=== PATIENT | male | born 1970 | race African-American/Black ===

== ENCOUNTER 2023-05-11 01:54 | Emergency (ER) | payer OTHER, SELFPAY ==
[2023-05-11 02:07] VITALS: BP 181/88; PULSE 87; RESP 18; TEMP 36.3; O2SAT 98; BMI 44.7
--- NOTE | 2023-05-11 02:16 | ED.WOUNDLAC ---
HPI - Wound/Laceration General Chief Complaint: Wound/Laceration Stated Complaint: cut on head may need stiches Time Seen by Provider: 05/11/23 02:02 Source: patient Mode of arrival: Ambulatory History of Present Illness HPI narrative: 52-year-old male presents for head laceration. He was working in his garage when he felt something strike his head. He later noticed blood dripping down his face and realized that he cut himself on something. He could not stop the bleeding so decided to present for evaluation. Reports tetanus shot updated several weeks ago as part of routine vaccinations. Related Data Allergies Allergy/AdvReac Type Severity Reaction Status Date / Time No Known Drug Allergies Allergy Verified 05/11/23 02:25 Review of Systems Review of Systems Narrative: Otherwise negative Patient History Social History Smoking Status: Never smoker Smoking Status: Never smoker alcohol intake frequency: 0-2 drinks per day Substance Use Type: does not use Exam Initial Vital Signs Initial Vital Signs: Vital Signs Temperature 97.4 F L 05/11/23 02:07 Pulse Rate 87 05/11/23 02:07 Respiratory Rate 18 05/11/23 02:07 Blood Pressure 181/88 H 05/11/23 02:07 Pulse Oximetry 98 05/11/23 02:07 Oxygen Delivery Method Room Air 05/11/23 02:07 Const: Awake, alert, no acute distress, nontoxic appearing Skin: Warm, Dry, 2 cm v-shaped laceration over left eyebrow Neuro: AO x3, CN II-XII grossly intact, moves all extremities Procedures Laceration Repair Laceration 1: Site: face Side (If applicable): left Size (cm): 2 Description: irregular Depth: simple, single layer Local Anesthetic: other anesthetic Pre-repair: irrigated extensively Skin layer closed with: nylon Skin layer suture size: 6-0 Number of sutures: 6 Technique: simple, interrupted Course Orders Ordered: Discontinued Medications Lidocaine/Prilocaine (Lidocaine/Prilocaine 5 Gm) 5 gm TOP NOW ONE Stop: 05/11/23 02:16 Last Admin: 05/11/23 02:25 Dose: 5 gm Documented By: JUAN CARLOS Vital Signs Vital signs: Vital Signs - 8 hr 05/11/23 02:07 05/11/23 03:12 Temperature 97.4 F L 97.5 F L Pulse Rate 87 70 Respiratory Rate 18 18 Blood Pressure 181/88 H 144/82 H Pulse Oximetry 98 98 Oxygen Delivery Method Room Air Room Air MDM - Wound/Laceration Differential Diagnosis Differential diagnosis: Likely laceration, abscess and abrasion MDM Narrative Medical decision making narrative: Minor head injury with laceration over left eyebrow. Laceration is v-shaped, small venous oozing of blood present. Patient is up-to-date on his tetanus shot. Wound irrigated, lidocaine and prilocaine cream ordered. Patient underwent laceration repair per procedure notes and tolerated without difficulty. Suture care instructions discussed at bedside. Discharge Plan Departure Patient Disposition: Home Clinical Impression: Facial laceration Instructions: DI for Laceration Repair Activity Restrictions/Additional Instructions: Suture removal in 5 days. Keep the wound clean and dry. Wear a bandage over the cut when wearing her CPAP machine to avoid unnecessary rubbing or trauma to the sutures. Stand Alone Forms: Patient Portal/API
[2023-05-11] MEDS: LIDOCAINE/PRILOCAINE 5 GM TOP (02:25)
[2023-05-11 03:12] VITALS: BP 144/82; PULSE 70; RESP 18; TEMP 36.4; O2SAT 98
== END 2023-05-11 03:13 | disposition home or self-care (01) ==
PROVIDERS: Emergency Provider Emergency Medicine
DX: S01.112A Laceration without foreign body of left eyelid and periocular area, initial encounter (principal); W22.8XXA Striking against or struck by other objects, initial encounter
CPT/HCPCS: 12011; 99282

== ENCOUNTER 2023-05-16 18:52 | Emergency (ER) | payer OTHER, SELFPAY ==
[2023-05-16 18:55] VITALS: BP 185/113; PULSE 100; RESP 15; TEMP 36.8; O2SAT 97; BMI 44.6
--- NOTE | 2023-05-16 19:12 | ED_ITS ---
HPI - Recheck/Abnormal Lab/Rx General Chief Complaint: Recheck/Abnormal Lab/Rx Stated Complaint: suture removal Time Seen by Provider: 05/16/23 19:03 Source: patient Mode of arrival: Ambulatory History of Present Illness HPI narrative: Patient presents for suture removal. Sutures placed on 05/10 by myself after patient sustained a cut to his left forehead. Patient denies complaints, states the wound is healing well. Related Data Allergies Allergy/AdvReac Type Severity Reaction Status Date / Time No Known Drug Allergies Allergy Verified 05/16/23 19:04 Review of Systems Review of Systems Narrative: See HPI Patient History Social History Smoking Status: Never smoker Smoking Status: Never smoker alcohol intake frequency: holidays/special occasions only Substance Use Type: does not use Exam Initial Vital Signs Initial Vital Signs: Vital Signs Temperature 98.3 F 05/16/23 18:55 Pulse Rate 100 H 05/16/23 18:55 Respiratory Rate 15 05/16/23 18:55 Blood Pressure 185/113 H 05/16/23 18:55 Pulse Oximetry 97 05/16/23 18:55 Oxygen Delivery Method Room Air 05/16/23 18:55 Const: Awake, alert, no acute distress, nontoxic appearing Skin: Warm, Dry, well healed laceration without any evidence of infection Neuro: AO x3, CN II-XII grossly intact, moves all extremities [place] [facility] [place] Procedure: Suture removal Side (if applicable): left Location: Face Technique/Description of procedure performed: Sutures removed with tweezers and scissors Patient tolerated procedure: Well and No complications Additional Comments: Removal of 6 sutures Course Vital Signs Vital signs: Vital Signs - 8 hr 05/16/23 18:55 05/16/23 19:20 Temperature 98.3 F Pulse Rate 100 H 91 H Respiratory Rate 15 18 Blood Pressure 185/113 H 159/100 H Pulse Oximetry 97 98 Oxygen Delivery Method Room Air Room Air MDM - Recheck/Abnormal Lab/Rx Differential Diagnosis Differential diagnosis: Likely encounter for medication refill, encounter for wound recheck and encounter for recheck of burn MDM Narrative Medical decision making narrative: Encounter for suture removal. Wound is well healed, no evidence of infection. Sutures removed. Scar prevention discussed with the patient at bedside. Discharge Plan Departure Patient Disposition: Home Clinical Impression: Encounter for removal of sutures Instructions: DI for Suture Removal Activity Restrictions/Additional Instructions: Put sunscreen on the healed wound to prevent darkened scarring Stand Alone Forms: Patient Portal/API
[2023-05-16 19:20] VITALS: BP 159/100; PULSE 91; RESP 18; O2SAT 98
== END 2023-05-16 19:20 | disposition home or self-care (01) ==
PROVIDERS: Emergency Provider Emergency Medicine
DX: Z48.02 Encounter for removal of sutures (principal)
CPT/HCPCS: 99281

== ENCOUNTER 2023-10-01 12:29 | Emergency (ER) | payer OTHER, SELFPAY ==
[2023-10-01 13:20] VITALS: BP 189/91; PULSE 65; RESP 18; TEMP 36.4; O2SAT 97; BMI 42.9
[2023-10-01 14:25] LABS: COVID-19 CEPHEID 4-PLEX PCR Negative (Negative); Influenza A - CEPHEID Flu A NEGATIVE (NEGATIVE); Influenza B - CEPHEID Flu B NEGATIVE (NEGATIVE); Respiratory Syncytial Virus Negative (Negative)
--- NOTE | 2023-10-01 16:33 | DI.RAD.S_ITS ---
PROCEDURE: XR CHEST 2V INDICATIONS: chills TECHNIQUE: 2 views of the chest were acquired. COMPARISON: None. FINDINGS: Surgical changes and devices: None. Lungs and pleura: Lungs are clear. No pleural effusions or pneumothorax. Mediastinum: Mediastinal contours are normal. Heart size is normal. Bones and chest wall: No suspicious bony abnormalities. Soft tissues appear unremarkable. IMPRESSION: No acute cardiopulmonary abnormality is seen. Dictated by: Jose David Hutchins M.D. on 10/01/2023 at 17:03 Approved by: Jose David Hutchins M.D. on 10/01/2023 at 17:03
[2023-10-01 17:26] VITALS: BP 153/78; PULSE 65; RESP 18; O2SAT 97
[2023-10-01 17:30] VITALS: TEMP 36.7
[2023-10-01 17:46] LABS: Add Manual Diff / Slide Review NO; Basophils Absolute Auto 0 /uL (0-100); Basophils Percent Auto 0.7 % (0-2); Eosinophils Absolute Auto 0 /uL (0-450); Eosinophils Percent Auto 1.2 % (2-4); Hematocrit 41.9 % (41-53); Hemoglobin 13.9 g/dL (13.5-17.5); Lymphocytes Absolute Auto 1300 /uL (1100-4500); Lymphocytes Percent Auto 32.4 % (25-40); Mean Corpuscular HGB Conc 33.2 % (30-36); Mean Corpuscular Hemoglobin 31.3 PG (26-34); Mean Corpuscular Volume 94.1 fL (80-100); Monocytes Absolute Auto 400 /uL (0-900); Monocytes Percent Auto 10.1 % (3-14); Neutrophils Absolute Auto 2200 /uL (1500-7000); Neutrophils Percent Auto 55.6 % (50-75); Platelet Count 247 X10^3/uL (150-400); Red Blood Cell Count 4.45 X10^6/uL (4.5-5.9); Red Cell Distribution Width 13.9 % (11.6-14.8); White Blood Cell Count 3.9 X10^3/uL (4.5-11.0)
[2023-10-01 18:02] LABS: Alanine Aminotransferase 21 IU/L (<50); Albumin 3.9 g/dL (3.5-5.0); Albumin Globulin Ratio 1.2 (1.0-2.8); Alkaline Phosphatase 149 U/L (38-126); Aspartate Aminotransferase 29 IU/L (17-59); BUN Creatinine Ratio 15.9 (6-22); Bilirubin Total 0.8 mg/dL (0.2-1.3); Blood Urea Nitrogen 13 mg/dL (9-20); Carbon Dioxide 33 mmol/L (22-32); Chloride 103 mmol/L (98-107); Estimated Glomerular Filt Rate > 60 mL/min (>60); Globulin 3.3 g/dL (1.7-4.1); Glucose 89 mg/dL (70-100); HEMOLYSIS < 15 (0-50); Lipase 142 U/L (23-300); Potassium 3.6 mmol/L (3.4-5.1); Sodium 140 mmol/L (137-145); Total Protein 7.2 g/dL (6.3-8.2)
--- NOTE | 2023-10-08 15:55 | ED.FEVER ---
HPI - Fever <Mona Crow PA-C - Last Filed: 10/08/23 16:09> General Chief Complaint: Fever Stated Complaint: sweating/cold/not eating Time Seen by Provider: 10/01/23 16:14 Source: patient Mode of arrival: Ambulatory History of Present Illness HPI Narrative: 53-year-old male with past medical history diabetes, status post bariatric surgery 2 years ago presents to the ED with 3 days of subjective fevers and sweats for the last 3 days. Patient complains of fatigue and anorexia. Patient has chronic diarrhea since the bariatric surgery and denies any change to that baseline. Denies rhinorrhea, cough, sore throat, other URI symptoms. No chest pain, shortness of breath, abdominal pain, hematochezia, melena. Related Data Allergies Allergy/AdvReac Type Severity Reaction Status Date / Time No Known Drug Allergies Allergy Verified 05/16/23 19:04 Review of Systems <Mona Crow PA-C - Last Filed: 10/08/23 16:09> Constitutional Constitutional: Denies chills, Reports excessive sweating, Reports fatigue, Reports fever(s), Denies frequent falls, Denies lethargy, Reports poor appetite and Denies weakness Eyes Eyes: Denies change in vision, Denies eye discharge, Denies irritation and Denies loss of vision ENT Ears, Nose, Mouth, and Throat: Denies change in voice, Denies dizziness, Denies neck pain, Denies sore throat and Denies throat swelling Cardiovascular Cardiovascular: Denies chest pain, Denies irregular heart rhythm, Denies lightheadedness, Denies palpitations, Denies dyspnea, Denies dyspnea on exertion and Denies orthopnea Respiratory Respiratory: Denies cough, Denies dyspnea, Denies dyspnea on exertion and Denies wheezing Gastrointestinal Gastrointestinal: Denies abdominal pain, Denies change in bowel habits, Reports diarrhea, Denies nausea and Denies vomiting Musculoskeletal Musculoskeletal: Denies neck pain and Denies numbness Integumentary/Breasts Skin/Breast: Denies pruritus, Denies erythema, Denies rash and Denies wounds Neurologic Neurologic: Denies behavioral changes, Denies confusion, Denies dizziness, Denies frequent falls, Denies loss of vision, Denies numbness and Denies weakness Psychiatric Psychiatric: Denies anxiety, Denies behavioral changes, Denies confusion, Denies depression, Denies homicidal ideation and Denies suicidal ideation Endocrine Endocrine: Reports excessive sweating, Reports fatigue, Denies flushing and Denies palpitations Hematologic/Lymphatic Hematologic/Lymphatic: Denies easy bruising Allergic/Immunologic Allergic/Immunologic: Denies urticaria, Denies throat swelling and Denies wheezing Patient History <Mona Crow PA-C - Last Filed: 10/08/23 16:09> Social History Smoking Status: Current some day smoker Smoking Status: Current some day smoker tobacco type: cigars alcohol intake frequency: holidays/special occasions only Substance Use Type: does not use Exam <Mona Crow PA-C - Last Filed: 10/08/23 16:09> Narrative Exam Narrative: Const General:?cooperative, healthy appearing and comfortable [facility] Head:?normal to inspection Ears:?hearing grossly normal bilaterally Nose:?external nose normal Face and sinus:?normal facial exam and sinuses nontender Mouth:?oral mucosae normal Throat:?posterior oropharynx normal Eyes General:?appearance normal, both eyes and all related structures Neck Neck:?normal visual inspection and no lymphadenopathy noted Resp Effort & Inspection:?normal respiratory effort Auscultation:?clear to auscultation bilaterally Cardio Rate:?regular rate Rhythm:?regular rhythm GI Abdomen is soft, nontender, nondistended Neuro General:?patient alert, patient awake and patient oriented x3 Initial Vital Signs Initial Vital Signs: Vital Signs Temperature 97.5 F L 10/01/23 13:20 Pulse Rate 65 10/01/23 13:20 Respiratory Rate 18 10/01/23 13:20 Blood Pressure 189/91 H 10/01/23 13:20 Pulse Oximetry 97 10/01/23 13:20 Oxygen Delivery Method Room Air 10/01/23 13:20 <Cele Allen DO - Last Filed: 10/09/23 07:51> Initial Vital Signs Initial Vital Signs: Vital Signs Temperature 97.5 F L 10/01/23 13:20 Pulse Rate 65 10/01/23 13:20 Respiratory Rate 18 10/01/23 13:20 Blood Pressure 189/91 H 10/01/23 13:20 Pulse Oximetry 97 10/01/23 13:20 Oxygen Delivery Method Room Air 10/01/23 13:20 MDM - Fever <Mona Crow PA-C - Last Filed: 10/08/23 16:09> Lab Data 10/01/23 17:35 10/01/23 17:35 Labs: Lab Results 10/01/23 10/01/23 Range/Units 13:27 17:35 WBC 3.9 L (4.5-11.0) X10^3/uL RBC 4.45 L (4.5-5.9) X10^6/uL Hgb 13.9 (13.5-17.5) g/dL Hct 41.9 (41-53) % MCV 94.1 (80-100) fL MCH 31.3 (26-34) PG MCHC 33.2 (30-36) % RDW 13.9 (11.6-14.8) % Plt Count 247 (150-400) X10^3/uL Neut % (Auto) 55.6 (50-75) % Lymph % (Auto) 32.4 (25-40) % [place] % (Auto) 10.1 (3-14) % Eos % (Auto) 1.2 L (2-4) % Baso % (Auto) 0.7 (0-2) % Neut # (Auto) 2200 (9570-0128) /uL Lymph # (Auto) 1300 (2073-3558) /uL [place] # (Auto) 400 (0-900) /uL Eos # (Auto) 0 (0-450) /uL Baso # (Auto) 0 (0-100) /uL Sodium 140 (137-145) mmol/L Potassium 3.6 (3.4-5.1) mmol/L Chloride 103 (98-107) mmol/L Carbon Dioxide 33 H (22-32) mmol/L BUN 13 (9-20) mg/dL Creatinine 0.82 (0.66-1.25) mg/dL Estimated GFR > 60 (>60) mL/min BUN/Creatinine Ratio 15.9 (6-22) Glucose 89 (70-100) mg/dL Calcium 9.0 (8.4-10.2) mg/dL Total Bilirubin 0.8 (0.2-1.3) mg/dL AST 29 (17-59) IU/L ALT 21 (<50) IU/L Alkaline Phosphatase 149 H (38-126) U/L Total Protein 7.2 (6.3-8.2) g/dL Albumin 3.9 (3.5-5.0) g/dL Globulin 3.3 (1.7-4.1) g/dL Albumin/Globulin Ratio 1.2 (1.0-2.8) Lipase 142 (23-300) U/L SARS-CoV-2 (PCR) Negative (Negative) Influenza A (RT-PCR) Flu a negative (NEGATIVE) Influenza B (RT-PCR) Flu b negative (NEGATIVE) RSV (PCR) Negative (Negative) Point of Care Testing Glucose POC 87 Urine Dip Bedside Urine Glucose Negative Bedside Urine Bilirubin - Negative Bedside Urine Ketone + 15 Urine Specific [place] 1.020 Bedside Urine Occult Blood - Negative Bedside Urine pH 6.0 Bedside Urine Protein - Negative Bedside Urine Urobilinogen - Negative Bedside Urine Nitrite - Negative Bedside Urine Leukocytes - Negative Esterase MDM Narrative Medical decision making narrative: 53-year-old male with past medical history diabetes, status post bariatric surgery 2 years ago presents to the ED with 3 days of subjective fevers and sweats for the last 3 days. Obtained chest x-ray, labs, UA, respiratory panel. Respiratory panel was negative for COVID-19, RSV, influenza. Chest x-ray without acute findings. Labs unremarkable. UA without UTI. UA does show some ketones, however patient has not eaten for several hours so likely starvation ketosis. Unclear etiology of patient's symptoms, could be other viral infection vs other. Recommend supportive measures. Recommend monitoring symptoms, returning to the ED if symptoms worsen. Patient verbalized understanding. Medical records reviewed: Yes <Cele Allen, - Last Filed: 10/09/23 07:51> Lab Data Labs: Lab Results 10/01/23 10/01/23 Range/Units 13:27 17:35 WBC 3.9 L (4.5-11.0) X10^3/uL RBC 4.45 L (4.5-5.9) X10^6/uL Hgb 13.9 (13.5-17.5) g/dL Hct 41.9 (41-53) % MCV 94.1 (80-100) fL MCH 31.3 (26-34) PG MCHC 33.2 (30-36) % RDW 13.9 (11.6-14.8) % Plt Count 247 (150-400) X10^3/uL Neut % (Auto) 55.6 (50-75) % Lymph % (Auto) 32.4 (25-40) % [place] % (Auto) 10.1 (3-14) % Eos % (Auto) 1.2 L (2-4) % Baso % (Auto) 0.7 (0-2) % Neut # (Auto) 2200 (9840-1001) /uL Lymph # (Auto) 1300 (6593-8474) /uL [place] # (Auto) 400 (0-900) /uL Eos # (Auto) 0 (0-450) /uL Baso # (Auto) 0 (0-100) /uL Sodium 140 (137-145) mmol/L Potassium 3.6 (3.4-5.1) mmol/L Chloride 103 (98-107) mmol/L Carbon Dioxide 33 H (22-32) mmol/L BUN 13 (9-20) mg/dL Creatinine 0.82 (0.66-1.25) mg/dL Estimated GFR > 60 (>60) mL/min BUN/Creatinine Ratio 15.9 (6-22) Glucose 89 (70-100) mg/dL Calcium 9.0 (8.4-10.2) mg/dL Total Bilirubin 0.8 (0.2-1.3) mg/dL AST 29 (17-59) IU/L ALT 21 (<50) IU/L Alkaline Phosphatase 149 H (38-126) U/L Total Protein 7.2 (6.3-8.2) g/dL Albumin 3.9 (3.5-5.0) g/dL Globulin 3.3 (1.7-4.1) g/dL Albumin/Globulin Ratio 1.2 (1.0-2.8) Lipase 142 (23-300) U/L SARS-CoV-2 (PCR) Negative (Negative) Influenza A (RT-PCR) Flu a negative (NEGATIVE) Influenza B (RT-PCR) Flu b negative (NEGATIVE) RSV (PCR) Negative (Negative) Point of Care Testing Glucose POC 87 Urine Dip Bedside Urine Glucose Negative Bedside Urine Bilirubin - Negative Bedside Urine Ketone + 15 Urine Specific [place] 1.020 Bedside Urine Occult Blood - Negative Bedside Urine pH 6.0 Bedside Urine Protein - Negative Bedside Urine Urobilinogen - Negative Bedside Urine Nitrite - Negative Bedside Urine Leukocytes - Negative Esterase Discharge Plan Departure Patient Disposition: Home Clinical Impression: Chills Instructions: DI for Fatigue Activity Restrictions/Additional Instructions: You were evaluated in the ED today for chills and fatigue. Your chest x-ray, urine, labs were normal. Your respiratory swab was negative for COVID-19, RSV, influenza. It is unclear why you were experiencing these symptoms, it is possible that you are coming down with a viral infection. Please continue to take Tylenol if you experience a fever. Please stay hydrated. Please follow-up with your PCP as soon as possible for further evaluation. Return to the ED if you have worsening symptoms, persistent vomiting. Stand Alone Forms: Patient Portal/API ED Sign-out <Cele Allen DO - Last Filed: 10/09/23 07:51> Cosign ED Attending Denny Attestation: I was immediately available in the department for consultation.
== END 2023-10-01 18:36 | disposition home or self-care (01) ==
PROVIDERS: Emergency Medicine; Emergency Provider Student in an Organized Health Care Education/Training Program
DX: R68.83 Chills (without fever) (principal); R53.83 Other fatigue
CPT/HCPCS: 0241U; 36415; 71046; 80053; 81003; 82962; 83690; 85025; 99283; 99284

== ENCOUNTER → 2024-01-08 15:10 | Outpatient (CLI) | payer OTHER, SELFPAY ==
--- NOTE | 2024-01-08 15:12 | DI.CT.S_ITS ---
PROCEDURE: CT LUMBAR SPINE WO CON INDICATIONS: radiculopathy TECHNIQUE: Noncontrast 0.6 mm thick sections acquired from the T12 level to the sacrum. Sagittal and coronal reformats were constructed. For radiation dose reduction, the following was used: automated exposure control. COMPARISON: [facility], CR, XR LUMBAR SPINE MIN 4V, 01/08/2024, 15:56. [facility], MR, MR LUMBAR SPINE WITHOUT CONTRAST, 05/23/2023, 14:04. FINDINGS: Image quality: This study is limited by body habitus. Bones: No acute vertebral body compression fractures. No suspicious lytic or blastic bony lesions. Mild dextroconvex scoliotic curvature is seen. Minimal retrolisthesis can be seen at L4-L5. Mild grade 1 L5-S1 anterolisthesis is seen. Associated bilateral L5 pars defects are seen. Age-appropriate lower thoracic spine degenerative changes are seen. T12-L1: Normal. L1-L2: Normal. L2-L3: Moderate loss of disc height is seen. Moderate disc bulge is seen, which is eccentric to the left. Moderate facet joint hypertrophy is seen. Moderate bilateral neural foraminal narrowing is seen. Mild to moderate central canal narrowing can be seen. L3-L4: At least moderate loss of disc height is seen. Moderate disc bulge is seen, which is eccentric to the right. Vacuum disc phenomenon is seen at this level. There is at least moderate bilateral neural foraminal narrowing seen. Mac row moderate central L4-L5: Mild loss of disc height is seen. Moderate disc bulge is seen at this level. Moderate facet joint hypertrophy is seen. Moderate bilateral neural foraminal narrowing is seen. Mild central canal narrowing is seen. L5-S1: Moderate loss of disc height is seen. Vacuum disc phenomenon is seen at this level. Endplate irregularity and sclerosis can be seen. Moderate generalized disc bulge is seen. At least moderate facet hypertrophy can be seen. There is at least moderate bilateral neural foraminal narrowing seen. No significant central canal narrowing can be seen. Soft tissues: No retroperitoneal masses or hematomas. Visualized aorta is normal in caliber. Left upper quadrant postoperative changes are seen. IMPRESSION: Imaging obtained for intraoperative localization. Multiple levels of lumbar spine degenerative change can be seen, which are worst at L5-S1. Bilateral L5 pars defects are seen, with grade 1 L5-S1 anterolisthesis. Dictated by: Mg Merrill M.D. on 01/08/2024 at 15:53 Approved by: Mg Merrill M.D. on 01/08/2024 at 15:57
--- NOTE | 2024-01-08 15:48 | DI.RAD.S_ITS ---
PROCEDURE: XR LUMBAR SPINE MIN 4V INDICATIONS: Spondylosis without myelopathy or radiculopathy, lumbar tianna TECHNIQUE: 5 views of the lumbar spine acquired, including flexion and extension views. COMPARISON: None. FINDINGS: Bones: 5 nonrib-bearing vertebrae are present. There is bilateral pars defect at L5 level with 1.4 cm anterolisthesis of L5 on S1. Degenerative endplate changes and bilateral facet arthrosis throughout lumbar spine is seen. No vertebral body compression fractures. No suspicious bony lesions. Soft tissues: Overlying bowel gas pattern is normal. No suspicious soft tissue calcifications. Flexion/extension: There is decreased range of motion, with suggestion of dynamic instability at L5-S1 level. IMPRESSION: 1. Bilateral pars defects at L5 level with 1.4 cm anterolisthesis of L4 on L5. No acute vertebral body compression fracture. Degenerative disc disease throughout lumbar spine. 2. Decreased range of motion on lateral flexion and extension views with suggestion of dynamic instability at L5-S1 level. Dictated by: Yovanny Sanders M.D. on 01/08/2024 at 17:11 Approved by: Yovanny Sanders M.D. on 01/08/2024 at 17:13
== END ==
PROVIDERS: Referring Provider Neurological Surgery; Visit Provider Neurological Surgery
DX: M47.26 Other spondylosis with radiculopathy, lumbar region (principal); M47.27 Other spondylosis with radiculopathy, lumbosacral region; M43.17 Spondylolisthesis, lumbosacral region; M43.16 Spondylolisthesis, lumbar region
CPT/HCPCS: 72110; 72131

== ENCOUNTER 2024-11-29 13:53 | Emergency (ER) | payer OTHER, SELFPAY ==
[2024-11-29 14:27] VITALS: BP 174/94; PULSE 74; RESP 16; TEMP 36.6; O2SAT 99; BMI 36.2
--- NOTE | 2024-11-29 14:35 | DI.RAD.S_ITS ---
PROCEDURE: XR FINGER LT MIN 2V INDICATIONS: cut with knife TECHNIQUE: AP hand, 2 views of the 2nd finger(s) acquired. COMPARISON: None. FINDINGS: Bones: No fractures or dislocations. No suspicious bony lesions. Age- appropriate bony degenerative changes are seen. Soft tissues: 2nd finger soft tissue injury is seen, with soft tissue gas. Mac radiopaque IMPRESSION: Second finger soft tissue injury, with soft tissue gas. No radiopaque foreign body is seen. No bony involvement is seen. Dictated by: Mg Merrill M.D. on 11/29/2024 at 14:16 Approved by: Mg Merrill M.D. on 11/29/2024 at 14:16
--- NOTE | 2024-11-29 16:20 | ED_ITS ---
HPI - Extremity Injury (Upper) General Chief Complaint: Extremity Injury, Upper Stated Complaint: cut to finger Time Seen by Provider: 11/29/24 16:11 Source: patient, RN notes reviewed and old records reviewed Mode of arrival: Ambulatory Limitations: no limitations History of Present Illness HPI narrative: 54-year-old male history of hypertension who presents with complaint of laceration to the 2nd digit in his left hand. Was cutting CABG with a knife for his chickens when he looked out the window because his dogs for barking and accidentally cut to the tip of his finger. Denies any numbness or weakness. 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 Patient states he takes medication for hypertension. He denies any other injuries. States tetanus Related Data Allergies Allergy/AdvReac Type Severity Reaction Status Date / Time No Known Drug Allergies Allergy Verified 11/29/24 14:27 Review of Systems Review of Systems ROS Unobtainable: All systems reviewed & are unremarkable except as noted in HPI and below Patient History Social History Smoking Status: Current every day smoker Smoking Status: Current every day smoker tobacco type: cigars and vaping alcohol intake frequency: holidays/special occasions only Exam Narrative Exam Narrative: GENERAL: Alert and oriented x three, male in mild distress HEENT: Head normocephalic, atraumatic, EOMI, pupils reactive, face symmetric, moist mucous membranes NECK: Supple, full range of motion CARDIOVASCULAR: Regular rate and rhythm without murmurs, rubs or gallops. RESPIRATORY: Breath sounds equal bilaterally, no wheezes rales or rhonchi. ABDOMEN: Soft, nontender. Normoactive bowel sounds all 4 quadrants. No guarding or rebound, rigidity, no mass EXTREMITIES: Normal range of motion, no clubbing or edema. Neurovascularly intact. Patient has not avulsion laceration to the 2nd finger over the pad and the lateral side adjacent to the nail on the radial side. Does not involve the nail. Does flap in his a proximally 0.5 cm in length. No bony or tendon exposure appreciated. NEUROLOGICAL: Cranial nerves II through XII grossly intact. Moving all extremities SKIN: Warm, dry, no petechiae, no rashes or lesions. Initial Vital Signs Initial Vital Signs: Vital Signs Temperature 98 F 11/29/24 14:27 Pulse Rate 74 11/29/24 14:27 Respiratory Rate 16 11/29/24 14:27 Blood Pressure 174/94 H 11/29/24 14:27 Pulse Oximetry 99 11/29/24 14:27 Oxygen Delivery Method Room Air 11/29/24 14:27 Procedures Laceration Repair Laceration 1: Site: hand (finger 2nd) Side (If applicable): left Size (cm): 0.5 Description: flap and clean Depth: simple, single layer Local Anesthetic: lidocaine 2% Amount of anesthesia used (mL): 2 Pre-repair: wound explored, irrigated extensively and deep structures intact Skin layer closed with: nylon Skin layer suture size: 5-0 Number of sutures: 3 Technique: simple, interrupted Course Orders Ordered: ED Orders 11/29/24 14:35 XR finger LT min 2V Stat Discontinued Medications Lidocaine HCl (Lidocaine 2% Inj Sdv 5ml) 5 ml INJ NOW ONE Stop: 11/29/24 16:38 Last Admin: 11/29/24 16:42 Dose: 5 ml Documented By: Vital Signs Vital signs: Vital Signs - 8 hr 11/29/24 17:04 Pulse Rate 72 Respiratory Rate 16 Blood Pressure 165/85 H Pulse Oximetry 97 Oxygen Delivery Method Room Air MDM - Extremity Injury (Upper) MDM Narrative Medical decision making narrative: Left finger x-ray shows no fractures or dislocations. No suspicious bony lesions. Age-appropriate bony degenerative changes, 2nd finger soft tissue injury seen with soft tissue gas no radiopaque foreign body seen. No bony involvement seen. Patient has laceration of the distal finger, areas clean dry and intact. Deep enough would likely benefit from sutures. Three sutures were placed after verbal consent from the patient patient tolerated well. Discussed wound care and return precautions. Discharge Plan Departure Patient Disposition: Home Clinical Impression: Laceration of finger Instructions: DI for Laceration Repair -- Finger Activity Restrictions/Additional Instructions: Wound Care: Keep wound(s) clean and dry. Wash daily with soap and water only. Do not use over the counter products (alcohol or peroxide)on the wounds unless instructed by a physician. You can use triple antibiotic ointment daily to the affected area. If wound condition worsens (increased/expanding redness, developing fluid blisters, or worsening pain), either contact your doctor for an urgent re- assessment , or return to the Emergency Department. Return to the ED, urgent care, or visit a primary care doctor for removal of in 7-10 days. Return if fever greater than 100.4 Fahrenheit, increased swelling, increasing pain or worsening symptoms such as increased discharge or spreading redness. Stand Alone Forms: Patient Portal/API
[2024-11-29] MEDS: LIDOCAINE 2% INJ SDV 5ML 5 ML INJ (16:42)
[2024-11-29 17:04] VITALS: BP 165/85; PULSE 72; RESP 16; O2SAT 97
== END 2024-11-29 17:05 | disposition home or self-care (01) ==
PROVIDERS: Emergency Provider Emergency Medicine
DX: S61.211A Laceration without foreign body of left index finger without damage to nail, initial encounter (principal); W26.0XXA Contact with knife, initial encounter; F17.210 Nicotine dependence, cigarettes, uncomplicated
CPT/HCPCS: 12001; 73140; 99283